=== PATIENT | male | born 1975 | race Caucasian/White ===

== ENCOUNTER 2020-07-31 06:59 | Day surgery (SDC) | payer BC ==
[~2020-07-31] VITALS: Ht 185.4 cm; Wt 124.6 kg
[2020-07-31] MEDS ORDERED: SYNTHROID0.075 MG/T PO (07:16)
[2020-07-31] MEDS ORDERED: PRINIVIL20 MG PO (07:16)
[2020-07-31 07:54] VITALS: BP 149/98; PULSE 63; TEMP 97.5
[2020-07-31 08:35] VITALS: BP 136/76; PULSE 70; TEMP 97.7
--- NOTE | 2020-07-31 08:35 | NUR ---
Pt to [facility] via cart from ENDO. Pt awake and alert. Pt ambulates to recliner with stand by assist. Pt denies pain or nausea. Warm blanket provided. Crackers and jucie given per pt request. into speak with pt.
[2020-07-31 08:50] VITALS: BP 132/97; PULSE 64
--- NOTE | 2020-07-31 08:50 | NUR ---
Pt tolerating food and fluids without difficulties. Pt denies pain or nausea.
--- NOTE | 2020-07-31 09:00 | NUR ---
Discharge instructions reviewed. Pt voices understanding. IV site discontinued with all parts intact. Pt up to dress. Call light within reach.
--- NOTE | 2020-07-31 09:15 | NUR ---
Pt escorted to private car via wheel chair. Pt accompanied home by his .
== END 2020-07-31 09:15 | disposition home or self-care (01) ==
LOC: SDCO 06:59
DX: K92.1 Melena (principal); K64.1 Second degree hemorrhoids; Q27.33 Arteriovenous malformation of digestive system vessel; I10 Essential (primary) hypertension; E03.9 Hypothyroidism, unspecified; K21.9 Gastro-esophageal reflux disease without esophagitis
CPT/HCPCS: J2704; J7030